=== PATIENT | male | born 1955 | race Caucasian/White ===

== ENCOUNTER → 2016-09-25 | Day surgery (SDC) | payer BC ==
[~2016-09-25] MED LIST: ADVIL200 M2 PO; HYDROCHLOROTHIA25 MG PO; LORTAB 7.5-5001 TAB PO; PRINIVIL40 MG PO; SIMVASTATIN40 MG PO; VOLTAREN50 MG PO
--- NOTE | ~2016-09-25 | OR ---
Unit #: [id number] #: [id number] Patient: CYNTHIA KO [id number] [address] [place], [place] [address] [id number] O MR#: [id number] NAME: CYNTHIA KO ROOM: Date of Procedure: 09/25/2016 Admission Date: 09/25/2016 Surgeon: Zachariah Guerrier M.D. : 1955 Attending Physician: Zachariah Guerrier M.D. Primary Care Physician: Jayden Dickerson M.D. OPERATIVE REPORT PREOPERATIVE DIAGNOSES The patient has presented for colorectal cancer screening. He has never had a colonoscopy before. In addition, he needs an upper gastrointestinal endoscopy as he complaining of history of epigastric pain, early satiety, and postprandial dyspepsia. PROCEDURES PERFORMED Upper gastrointestinal endoscopy as well as colonoscopy. POSTOPERATIVE DIAGNOSES 1. For upper endoscopy, completely normal examination up to third part of duodenum. 2. For colonoscopy, completely normal examination up to cecum and terminal ileum. The patient did not have any polyps nor any diverticula or hemorrhoids. RECOMMENDATIONS 1. An outpatient CT scan of the abdomen is being scheduled. The patient will be reviewed thereafter. 2. He needs a repeat colonoscopy in 10 years. SEDATION USED MAC. DESCRIPTION OF PROCEDURE Following detailed explanation of the potential risks and complications of an upper endoscopy and a colonoscopy, namely perforation, bleeding, and complications related to sedation, the patient was brought to GI lab and laid in the left lateral decubitus position. Lubricated tip of the Olympus video upper endoscope was passed through the bite block into the proximal esophagus under direct vision. The entire esophageal mucosa was examined and appeared normal. Z-line was nicely demarcated, there being no esophagitis or hiatus hernia. The scope was then advanced into the gastric cavity and the latter was insufflated. Mucosa of the fundus, body, and antrum examined and appeared unremarkable. Pylorus was intubated with visualization of normal duodenal bulb and second and third part of the duodenum. Upon withdrawal and retroflexion, incisura, cardia, and greater curve examined and no additional findings noted. The scope was then withdrawn in the distal esophagus. The entire esophageal mucosa was examined all the way up to pharynx. No additional findings noted. The examination table was then turned by 180 degrees and the patient Unit #: [id number] #: [id number] Patient: CYNTHIA KO positioned for a colonoscopy. A digital rectal examination was performed, which was normal. Lubricated tip of the Olympus video colonoscope was inserted through the anus and advanced under direct vision. The scope was advanced and passed up to sigmoid into descending colon. No diverticula were noticed in this area. The scope tip was then navigated all the way up to cecum with visualization of the ileocecal valve and the appendiceal orifice. Preparation was good with good visualization and photodocumentation was obtained. Last several inches of terminal ileum also visualized after intubation of the ileocecal valve and appeared normal. Successive segments of the colonic mucosa were examined upon withdrawal and appeared unremarkable. There being no polyps, mass lesions, AVMs, or diverticula. The patient did not have any hemorrhoids at anal verge. The scope was then withdrawn. The patient returned to the recovery area. He tolerated the procedure without any postprocedure complications. Dictated by... Silver Frederick/rebecca TD: 09/26/2016 04:10 JOB #: [id number] OPERATIVE REPORT Page 1 of 1 X Zachariah Guerrier MD X PROCEDURE OPERATIVE NOTE
== END | disposition home or self-care (01) ==
LOC: COPS 09:17
PROVIDERS: Internal Medicine Gastroenterology
PROC: 0DJ08ZZ Inspection of Upper Intestinal Tract, Via Natural or Artificial Opening Endoscopic (ICD-10-PCS; principal; 2016-09-25 11:00)
PROC: 0DJD8ZZ Inspection of Lower Intestinal Tract, Via Natural or Artificial Opening Endoscopic (ICD-10-PCS; 2016-09-25 11:00)
DX: R10.13 Epigastric pain (principal); R68.81 Early satiety; Z12.11 Encounter for screening for malignant neoplasm of colon; K21.9 Gastro-esophageal reflux disease without esophagitis; Z79.899 Other long term (current) drug therapy; Z79.1 Long term (current) use of non-steroidal anti-inflammatories (NSAID); H93.91 Unspecified disorder of right ear; Z98.890 Other specified postprocedural states; Z88.5 Allergy status to narcotic agent
CPT/HCPCS: 43235; G0121

== ENCOUNTER 2016-09-27 13:22 | Emergency (ER) | payer BC ==
[2016-09-27 14:54] LABS: BASOPHIL% 0.6 % (0-2.5); EOSINOPHIL# 0.1 X10e3 (0-0.7); EOSINOPHIL% 2.4 % (0.0-7.0); HEMOGLOBIN 16.3 gm/dL (13.0-16.0); LYMPHOCYTE# 1.5 X10e3 (1.0-3.5); LYMPHOCYTE% 23.9 % (17.0-45.0); MEAN CELL VOLUME 91.5 FL (83-96); MEAN CORPUSCULAR HEMOGLOBIN 31.2 PG (28-34); MEAN PLATELET VOLUME 8.9 FL (6.5-11.5); MONOCYTE# 0.6 X10e3 (0-1.0); MONOCYTE% 9.3 % (3.0-12.0); NEUTROPHIL% 63.8 % (40-75); PLATELET COUNT 231 X10e3 (140-420); RED BLOOD COUNT 5.25 X10e (3.90-5.60); RED CELL DISTRIBUTION WIDTH 13.7 % (11.0-15.5); WHITE BLOOD COUNT 6.3 X10e3 (4.0-10.5)
[2016-09-27 14:55] LABS: DIFF IND NO
[2016-09-27 14:55] LABS: URINE SOURCE CLEAN CATCH
[2016-09-27 15:05] LABS: URINE APPEARANCE CLEAR; URINE BILIRUBIN NEG (NEG); URINE BLOOD 2+ (NEG); URINE COLOR YELLOW; URINE GLUCOSE NEG (NEG); URINE KETONE NEG (NEG); URINE LEUKOCYTE ESTERASE NEG (NEG); URINE NITRATE NEG (NEG); URINE PH 7.5 (5-8); URINE PROTEIN NEG (NEG); URINE SPECIFIC GRAVITY 1.064 (1.003-1.035)
[2016-09-27 15:07] LABS: URINE BACTERIA AUWI NEG (NEGATIVE); URINE SQUAMOUS EPITHELIAL CELL NONE SEEN /[HPF]; UWBCS1 AUWI 0-2 (0-5)
[2016-09-27 15:08] LABS: CULTURE INDICATED? NO
[2016-09-27 15:16] LABS: POTASSIUM 4.3 mmol/L (3.5-5.1)
== END 2016-09-27 15:50 | disposition home or self-care (01) ==
LOC: CED 13:22
PROVIDERS: Emergency Medicine
DX: R10.9 Unspecified abdominal pain (principal); R31.29 Other microscopic hematuria; E78.5 Hyperlipidemia, unspecified; Z98.890 Other specified postprocedural states; Z88.8 Allergy status to other drugs, medicaments and biological substances
CPT/HCPCS: 36415; 80048; 81003; 85025; 96374; 99284; J1885

== ENCOUNTER → 2016-09-27 | Outpatient (CLI) | payer BC ==
--- NOTE | ~2016-09-27 | CT5 ---
[facility] A Service of [facility] RADIOLOGY TEXT RESULTS PATIENT: CYNTHIA KO LOCATION: [facility] : 59 UNIT #: [id number] AGE: [address]: Zachariah Guerrier MD SEX: M ORDER DR: [id number] [facility] [address] [place], [place] [address] [id number] O MR#: [id number] Acc #: [id number] NAME: CYNTHIA KO. : 1955 SEX: M STUDY DATE/TIME: 09/27/2016 13:04 UNIT: [facility] ROOM: STUDY DESCRIPTION: CT Abdomen W Cont Attending Physician: Zachariah Guerrier M.D. Referring Physician: Zachariah Guerrier M.D. Ordering Physician: Zachariah Guerrier M.D. Primary Care Physician: Jayden Dickerson M.D. MEDICAL IMAGING REPORT This report is preliminary unless electronic signature is present EXAM CT abdomen with contrast HISTORY Epigastric pain to mid abdominal pain for 3 years since hernia repair. Hypertension. History of skin cancer. COMPARISON CT abdomen and pelvis with contrast 02/05/2013. TECHNIQUE 5 mm axial images from the lung bases through the iliac crest after IV and enteric contrast administration. Sagittal and coronal reformatted images were obtained. This CT exam was performed with one or more of the following radiation dose reduction techniques: automatic exposure control, adjustment of mA and/or kV according to patient size, and iterative reconstruction. FINDINGS ABDOMEN: Lung bases are free of consolidation. The liver, gallbladder, spleen, pancreas, adrenals and kidneys are within normal limits. Signs of midline ventral abdominal hernia repair without evidence of hernia recurrence. Although the appendix is not discretely visualized, no pericecal inflammation is seen. The bowel appears non-thickened, non-dilated, non-inflamed. No free air or free fluid is evident. There is [id number] calcific atherosclerosis within a non-aneurysmal abdominal aorta. No acute or suspicious osseous abnormalities are identified. IMPRESSION 1. No acute findings in the abdomen or pelvis. No CT explanation for [facility] A Service of [facility] RADIOLOGY TEXT RESULTS PATIENT: CYNTHIA KO LOCATION: [facility] : 59 UNIT #: [id number] AGE: [address]: Zachariah Guerrier MD SEX: M ORDER DR: the patient's abdominal pain. 2. Ventral abdominal hernia repair without evidence of hernia recurrence. 3. The appendix is not visualized but no pericecal inflammation is appreciated. Dictated by... Cyndi Parker M.D. THIS IS AN ELECTRONICALLY VERIFIED REPORT Cyndi Parker M.D. at 09/29/2016 7:14 AM CHANEL/keven TD: 09/27/2016 15:15 JOB #: [id number] MEDICAL IMAGING REPORT Page 1 of 1 COPY
[2016-09-27 14:05] LABS: POC - CREATININE 0.85 mg/dL (0.64-1.27); POC - GFR >60.0 mL/min (>60)
== END | disposition home or self-care (01) ==
LOC: CCAT 11:18
PROVIDERS: Internal Medicine Gastroenterology
DX: R10.12 Left upper quadrant pain (principal); Z98.890 Other specified postprocedural states
CPT/HCPCS: 74160; 82565; Q9967